=== PATIENT | female | born 1990 | race Caucasian/White ===

== ENCOUNTER 2023-06-06 03:00 | Emergency (ER) | payer OTHER, SELFPAY ==
[2023-06-06 03:05] VITALS: BP 107/56; PULSE 82; RESP 16; TEMP 36.7; O2SAT 100; BMI 28.5
--- NOTE | 2023-06-06 03:25 | ECG_ITS ---
Test Reason : CHEST PAIN Blood Pressure : / mmHG Vent. Rate : 081 BPM Atrial Rate : 081 BPM P-R Int : 126 ms QRS Dur : 084 ms QT Int : 388 ms P-R-T Axes : 001 023 008 degrees QTc Int : 450 ms Normal sinus rhythm Nonspecific T wave abnormality Abnormal ECG When compared with ECG of 10-AUG-2014 00:01, Nonspecific T wave abnormality, worse in Anterior leads Referred By: Crystal Houston Electronically Signed By:APOLLO LUCIO MD
--- NOTE | 2023-06-06 03:27 | ED_ITS ---
HPI - Anxiety General Chief Complaint: Anxiety Stated Complaint: Panic Attack Time Seen by Provider: 06/06/23 03:20 Source: patient Mode of arrival: ambulatory Limitations: no limitations History of Present Illness HPI narrative: Patient comes to emergency room complaining of anxiety. Patient states that for the last 4 hours, patient has been having reflux, took 4 tablets of Tums trying to alleviate symptoms. Patient known to have anxiety, states that she takes ?gabapentin 100 mg t.i.d. for anxiety. Patient also concerned that she may have COVID. Patient states that people living in her home have tested for COVID within the last few days and also now she has cold-like symptoms. Patient has chest pain, admits to shortness of breath secondary to the panic attack. Patient denies SI or HI Related Data Allergies Allergy/AdvReac Type Severity Reaction Status Date / Time pollen extracts [POLLEN] Allergy Unknown ITCHY Verified 06/06/23 03:03 Review of Systems 2 Review of Systems: Constitutional : No Weight loss, No Fever, No Chills, No Night Sweats, No Fatigue, No Malaise ENT/Mouth : No Hearing loss, No Ear Pain, No Nasal Congestion, No Sinus Pain, No Hoarseness, No sore throat, No Rhinorrhea, No Swallowing Difficulty Eyes: No Eye Pain, No Swelling, No Redness, No Foreign Body, No Discharge, No Vision Changes Cardiovascular : No Chest Pain, No SOB, No Dyspnea on Exertion, No Orthopnea, No Edema, No Palpitations Respiratory : No Cough, No Sputum, No Wheezing, No Smoke Exposure, No Dyspnea Gastrointestinal : No Nausea, No Vomiting, No Diarrhea, No Constipation, complaining of epigastric burning sensation, No abdominal Pain, No Hematochezia, No Melena Genitourinary : no irregular bleeding, No Dysuria, No Urinary Frequency, No Hematuria, No Urinary Incontinence, No Urgency, No Flank Pain, No Urinary Flow Changes, No Hesitancy Musculoskeletal : No joint pain, No Myalgias, No Joint Swelling Skin : No Skin Lesions, No rash Neuro : No Weakness, No Numbness, No Paresthesias, No Loss of Consciousness, No Dizziness, No Headache Psych : Complaining of anxiety and a panic attack, No Depression, No SI/HI/AH/VH, No Social Issues, Heme/Lymph: No Bruising, No Bleeding,No Lymphadenopathy Endocrine : No Polyuria, No Polydipsia, No Temperature Intolerance [facility] Past Medical History Medical History (Updated 06/06/23 @ 04:25 by Crystal Houston MD) Anxiety Social History Social History Advance Directives: No Advance Directives Information Provided: No Physical Exam 2 Vital Signs: Vital Signs: Last Vital Signs Temp 97.9 F 06/06/23 03:28 Pulse 83 06/06/23 03:28 Resp 22 H 06/06/23 03:28 BP 99/65 06/06/23 03:28 Pulse Ox 100 06/06/23 03:28 O2 Del Method Room Air 06/06/23 03:28 BMI result Body Mass Index 28.5 Const: Other: Appearance: Alert. Oriented X3. No acute distress. Eyes: Pupils equal, round and reactive to light. ENT: Pharynx normal. Neck: Normal inspection. Neck supple. No lymph nodes noted. No crepitus CVS: Normal heart rate and rhythm. Pulses normal. Normal S1 and S2 Respiratory: No respiratory distress. Breath sounds normal. No Wheezing. No rales Abdomen: Soft and nontender. No rigidity. No distention. Skin: Skin warm and dry. Normal skin color. Normal skin turgor. Extremities: No lower extremity edema. No Lacerations. No Rash Neuro: Oriented X 3. No motor deficit. No sensory deficit. Moving all extremities. No slurred speech. CN 2 through 12 grossly intact Psych: calm, cooperative, very anxious Course Course Course Narrative: -patient's vitals stable -patient very anxious - patient's labs and EKG pending -patient provided with p.o. viscous lidocaine, Maalox, lorazepam and Pepcid Medications Administered Discontinued Medications Generic Name Dose Route Start Last Admin Trade Name Freq PRN Reason Stop Dose Admin Al Hydroxide/Mg Hydroxide 30 ml 06/06/23 03:25 06/06/23 03:33 Magnesium Hydrox/Alum Hydrox 30 Ml Oral.Susp PO 06/06/23 03:26 30 ml ONCE ONE Administration Famotidine 20 mg 06/06/23 03:25 06/06/23 03:33 Famotidine 20 Mg Tablet PO 06/06/23 03:26 20 mg ONCE ONE Administration Lidocaine HCl 15 ml 06/06/23 03:25 06/06/23 03:33 Lidocaine Hcl Viscous 2 % 15 Ml Solution MUCOUS MEM 06/06/23 03:26 15 ml ONCE ONE Administration Lorazepam 1 mg 06/06/23 03:32 06/06/23 03:34 Lorazepam 1 Mg Tablet PO 06/06/23 03:33 1 mg ONCE ONE Administration Medical Decision Making Medical Decision Making [facility] Narrative: -patient received a GI cocktail, patient feeling better. GERD symptoms improve -my interpretation of labs: Hematology and chemistry unremarkable. Troponin negative, Patient's serology test positive for COVID as expected. Differential Diagnosis Differential Diagnoses: The differential diagnosis associated with the presentation includes (Anxiety, COVID, influenza, viral syndrome, GERD) Admission/Observation Consideration of admission/observation: Escalation of care including admission/observation considered (Given patient's symptoms , on admission was considered) Lab Data [facility] Lab Attestation statement: I reviewed the patient's lab results. 06/06/23 03:54 06/06/23 03:54 Labs: Lab Results 06/06/23 06/06/23 Range/Units 03:38 03:54 WBC 9.7 (4.8-10.8) X10*3/uL RBC 4.41 (4.20-5.50) X10*6/uL Hgb 12.6 (12.0-16.0) g/dl Hct 37.4 (37.0-47.0) % MCV 84.8 (80.0-98.0) fL MCH 28.6 (27.0-33.0) pg MCHC 33.7 (31.0-35.0) g/dl RDW 13.2 (11.0-16.0) % Plt Count 211 (160-400) X10*3/uL MPV 9.2 L (9.4-12.3) fL Immature Gran % (Auto) 0.3 (0.0-0.4) % Neut % (Auto) 80.7 H (45-73) % Lymph % (Auto) 12.7 L (20-40) % Colbert % (Auto) 5.7 (2-11) % Eos % (Auto) 0.2 (0-4) % Baso % (Auto) 0.4 (0-2) % Lymph # (Auto) 1.2 (1.2-4.9) X10*3/uL Colbert # (Auto) 0.6 (0.1-1.2) X10*3/uL Eos # (Auto) 0.0 (0.0-0.4) X10*3/uL Baso # (Auto) 0.0 (0.0-0.2) X10*3/uL Abs Immat Gran (auto) 0.03 (0.00-0.03) X10*3/uL Absolute Neuts (auto) 7.8 (2.0-8.3) x10*3/uL Absolute Nucleated RBC 0.000 (0.0-0.012) X10*3/uL Nucleated RBC % (auto) 0.0 (0.0-0.2) /100WBC Sodium 139 (135-145) mmol/L Potassium 3.7 (3.3-5.1) mmol/L Chloride 104 (96-108) mmol/L Carbon Dioxide 24 (22-29) mmol/L Anion Gap 15 (12-20) BUN 8 L (9-16) mg/dL Creatinine 0.77 (0.5-1.4) mg/dL Estim Creat Clear Calc 102.3 Estimated GFR > 60 Random Glucose 108 (60-115) mg/dL Calcium 10.3 H (8.4-10.2) mg/dL Total Bilirubin 0.5 (0.0-1.0) mg/dL Direct Bilirubin 0.2 (0.0-0.5) mg/dL AST 26 (5-31) U/L ALT 20 (0-31) U/L Alkaline Phosphatase 61 (39-117) U/L Total Protein 7.0 (6.5-8.0) g/dL Albumin 4.2 (3.5-5.0) g/dL COVID-19 (CEFERINO) Positive A (Negative) COVID-19 Clin Com See Note Influenza Type A (FLORENCIO) Negative (Negative) Influenza Type B (FLORENCIO) Negative (Negative) Influenza A & B Note See Note Critical Care Time Critical Care Time Critical Care Time: Yes Total Critical Care Time: 30 Attestation: I have personally provided critical care time. Time includes review of lab data, radiology results, discussion with consultants, and monitoring for potential decompensation. Intervention performed as documented. Discharge Plan Discharge Clinical Impression: Acute anxiety, COVID-19 Patient Disposition: Home, Self-Care Instructions: COVID-19 (Coronavirus Disease 2019) (ED), Anxiety (ED) Additional Instructions: Please follow-up with your primary care physician tomorrow. If you have any worsening or new symptoms, please return to the emergency room or call 911
[2023-06-06 03:28] VITALS: BP 99/65; PULSE 83; RESP 22; TEMP 36.6; O2SAT 100
[2023-06-06] MEDS: Lidocaine HCl Viscous 2 % 15 ML SOLUTION MUCOUS MEM (03:33)
[2023-06-06] MEDS: Famotidine 20 MG TABLET PO (03:33)
[2023-06-06] MEDS: Magnesium Hydrox/Alum Hydrox 30 ML ORAL.SUSP PO (03:33)
[2023-06-06] MEDS: LORazepam 1 MG TABLET PO (03:34)
--- NOTE | 2023-06-06 03:43 | PC.NURSE ---
Pt ca&ox4, no signs of distress. Pt reports 6/10 pain in between shoulder blades that now radiates down back. Pt reports taking 4 tums and 2 tablespoons of pepto prior to coming to the ER Provider in with pt. Pt medicated per jun. Pt swabbed for flu and covid and sent. EKG complete. Plan of care ongoing.
[2023-06-06 03:52] LABS: COVID-19 Test Positive (Negative); IDNOW Serial# 152EDE1D
[2023-06-06 03:58] LABS: MANUAL DIFF FLAG NO
[2023-06-06 04:00] LABS: Basophils Percent Auto 0.4 % (0-2); Eosinophils Percent Auto 0.2 % (0-4); Hematocrit 37.4 % (37.0-47.0); Hemoglobin 12.6 g/dl (12.0-16.0); Imm Gran Abs Auto 0.03 X10*3/uL (0.00-0.03); Imm Gran Pct Auto 0.3 % (0.0-0.4); Lymphocytes Absolute Auto 1.2 X10*3/uL (1.2-4.9); Lymphocytes Percent Auto 12.7 % (20-40); Mean Corpuscular HGB Conc 33.7 g/dl (31.0-35.0); Mean Corpuscular Hemoglobin 28.6 pg (27.0-33.0); Mean Corpuscular Volume 84.8 fL (80.0-98.0); Mean Platelet Volume 9.2 fL (9.4-12.3); Monocytes Absolute Auto 0.6 X10*3/uL (0.1-1.2); Monocytes Percent Auto 5.7 % (2-11); Neutrophils Absolute Auto 7.8 x10*3/uL (2.0-8.3); Neutrophils Percent Auto 80.7 % (45-73); Platelet Count 211 X10*3/uL (160-400); Red Blood Count 4.41 X10*6/uL (4.20-5.50); Red Cell Distribution Width 13.2 % (11.0-16.0); White Blood Count 9.7 X10*3/uL (4.8-10.8)
[2023-06-06 04:03] LABS: IDNOW Serial# 08D9AD1C; Influenza A Negative (Negative); Influenza B2 Negative (Negative)
[2023-06-06 04:15] LABS: Alanine Aminotransferase 20 U/L (0-31); Albumin Level 4.2 g/dL (3.5-5.0); Alkaline Phosphatase 61 U/L (39-117); Anion Gap 15 (12-20); Aspartate Amino Transferase 26 U/L (5-31); Bilirubin Direct 0.2 mg/dL (0.0-0.5); Bilirubin Total 0.5 mg/dL (0.0-1.0); Blood Urea Nitrogen 8 mg/dL (9-16); Calcium 10.3 mg/dL (8.4-10.2); Carbon Dioxide 24 mmol/L (22-29); Chloride 104 mmol/L (96-108); Creatinine Clr Calc Pharmacy 102.3; Estimated Glomerular Filt Rate > 60; Glucose Random 108 mg/dL (60-115); Potassium 3.7 mmol/L (3.3-5.1); Sodium 139 mmol/L (135-145)
[2023-06-06 04:22] LABS: Troponin-I High Sensitivity < 2.7 ng/L (<3.5-17.0)
== END 2023-06-06 05:05 | disposition home or self-care (01) ==
PROVIDERS: Emergency Provider Emergency Medicine
DX: U07.1 COVID-19 (principal); F41.1 Generalized anxiety disorder; F43.0 Acute stress reaction; R94.31 Abnormal electrocardiogram [ECG] [EKG]; R07.89 Other chest pain; Z79.899 Other long term (current) drug therapy
CPT/HCPCS: 36415; 80048; 80076; 84484; 85025; 87502; 87635; 93005; 99283; 99284

== ENCOUNTER → 2023-06-06 03:25 | Outpatient (BNV) | payer OTHER, SELFPAY | PROVIDERS: Emergency Provider Emergency Medicine; Visit Provider Internal Medicine Cardiovascular Disease | DX: R94.31 Abnormal electrocardiogram [ECG] [EKG] (principal); R07.9 Chest pain, unspecified | CPT/HCPCS: 93010 ==

== ENCOUNTER 2023-11-09 22:13 | Emergency (ER) | payer OTHER, SELFPAY ==
--- NOTE | 2023-11-09 22:47 | PC.NURSE ---
Pt called to triage, no answer from WR before triage assessment could be completed.
== END 2023-11-09 22:51 | disposition left against medical advice (07) ==
PROVIDERS: Emergency Provider Emergency Medicine
DX: F41.0 Panic disorder [episodic paroxysmal anxiety] (principal); M25.519 Pain in unspecified shoulder; Z53.21 Procedure and treatment not carried out due to patient leaving prior to being seen by health care provider